=== PATIENT | male | born 1980 | race Caucasian/White ===

== ENCOUNTER 2017-03-25 12:38 | Observation (INO) | payer OTHER ==
[2017-03-25 13:01] LABS: BASOPHIL# 0.1 X 10^3uL (0.0-0.1); BASOPHILS 0.5 % (0.0-2.0); EOSINOPHILS 0.9 % (0.0-6.0); EOSINOPHILS# 0.1 X 10^3uL (0.0-0.4); HEMATOCRIT 47.4 % (42.0-54.0); HEMOGLOBIN 16.6 g/dL (14.0-18.0); LYMPHOCYTES 22.6 % (20.0-40.0); LYMPHOCYTES# 2.9 X 10^3uL (0.8-3.8); MEAN CELL VOLUME 92.6 fL (80.0-100.0); MEAN CORPUS. HGB CONCENTRATION 35.1 g/dL (32.0-36.0); MEAN CORPUSCULAR HEMOGLOBIN 32.5 pg (29.0-35.0); MEAN PLATELET VOLUME 8.6 fL (7.4-10.4); MONOCYTES# 0.8 X 10^3uL (0.2-1.0); NEUTROPHILS# 9.1 X 10^3uL (2.6-6.7); PLATELET COUNT 277 X 10^3uL (130-440); RED BLOOD COUNT 5.12 X 10^6uL (4.20-6.10); RED CELL DISTRIBUTION WIDTH 12.3 % (11.5-14.5)
[2017-03-25] MEDS ORDERED: ONDANSETRON HCL 4 MG/2 ML VIAL ONE ×2 (13:01→17:43)
[2017-03-25] MEDS ORDERED: HYDROmorphone HCL 1 MG/ML SYR ONE ×2 (13:01→14:56)
[2017-03-25 13:14] LABS: A/G RATIO 1.4; ALBUMIN 4.9 g/dL (3.5-5.0); ALKALINE PHOSPHATASE 76 U/L (38-126); ALT 34 U/L (21-72); AST 42 U/L (17-59); BILIRUBIN, TOTAL 0.8 mg/dL (0.2-1.3); BLOOD UREA NITROGEN 18 mg/dL (9-20); CALCIUM 9.8 mg/dL (8.4-10.2); CHLORIDE 101 mmol/L (98-107); CREATININE 1.1 mg/dL (0.7-1.3); EST GLOMERULAR FILTRATION RATE > 60 mL/min; GLUCOSE 132 mg/dL (70-100); POTASSIUM 3.3 mmol/L (3.5-5.1); SODIUM 144 mmol/L (137-145); TOTAL PROTEIN 8.4 g/dL (6.3-8.2)
--- NOTE | 2017-03-25 13:50 | CT REPORT ---
HISTORY: Fall from 20 feet. Trauma. COMPARISON: None. TECHNIQUE: This examination was performed using automated exposure control, adjustment of mA or kV according to patient size, and/or use of iterative reconstruction technique. Multiple contiguous axial images were obtained from the lung bases through the pubic symphysis following administration of intravenous con trast. 100cc Isovue 300 contrast. FINDINGS: The lung bases are clear except for minimal scarring in the right middle lobe. There is no pleural or pericardial effusion. The heart size. Abdomen/pelvis: The liver, gallbladder, and bile ducts appear normal. The spleen, pancreas, adrenal g lands, and kidneys appear unremarkable, except for small left renal parapelvic cysts. The abdominal a jamil is normal. The bowel and bladder appear unremarkable. No free fluid or free air is demonstrated. No fracture is demonstrated in the lumbar spine or pelvis. Imaged lower ribs are intact. IMPRESSION: Negative abdomen and pelvis CT, except for left renal parapelvic cysts. No acute traumatic findings. Final Electronic Signature: This report was electronically signed by Luis E Osuna MD on 03/25/2017 1:48 PM. oral /
--- NOTE | 2017-03-25 13:52 | CT REPORT ---
HISTORY: Fall from 20 feet. Trauma. COMPARISON: None. TECHNIQUE: This examination was performed using automated exposure control, adjustment of mA or kV according to patient size, and/or use of iterative reconstruction technique. Axial thin section images obtained f rom skull base through head of the clavicles. Sagittal and coronal reformat images obtained. FINDINGS: No acute fracture or traumatic subluxation is demonstrated. Degenerative disc disease is moderate at C5-6 and C6-7. Prevertebral soft tissues are normal. IMPRESSION: 1. Moderate degenerative disc disease at C5-6 and C6-7. 2. No acute fracture or traumatic subluxation. Final Electronic Signature: This report was electronically signed by Luis E Osuna MD on 03/25/2017 1:50 PM. oral /
--- NOTE | 2017-03-25 15:10 | RADIOLOGY REPORT ---
Two limited views of the right ankle demonstrate no displaced fracture, dislocation or other bony abnormality. The visualized joints appear unremarkable. IMPRESSION: No displaced injury is identified. If clinically indicated, further evaluation and/or follow-up may be of benefit. MTDD
--- NOTE | 2017-03-25 15:11 | RADIOLOGY REPORT ---
Three views of the left wrist demonstrate a comminuted intraarticular fracture of the distal radius. There is approximately 90 degrees of apex anterior angulation. The carpus and ulna appear grossly intact. No other abnormality is identified. IMPRESSION: Angulated comminuted intraarticular left distal radius fracture as described. MTDD
[2017-03-25] MEDS ORDERED: FENTANYL 100 MCG/2 ML VIAL ONE (15:29)
[2017-03-25] MEDS ORDERED: LIDOCAINE HCL 2% 20 ML VIAL ONE (15:29)
[2017-03-25] MEDS ORDERED: MIDAZOLAM HCL 2 MG/2 ML VIAL ONE (15:29)
[2017-03-25] MEDS ORDERED: SUCCINYLCHOLINE CHLORIDE 200 MG/10 ML VIAL ONE (15:30)
[2017-03-25] MEDS ORDERED: METOCLOPRAMIDE HCL 10 MG/2 ML VIAL ONE (15:30)
--- NOTE | 2017-03-25 16:40 | ER NURSING DOCUMENTATION ---
Nurse's Notes [facility] Name:Kamlesh Harris Age:36 yrs Sex:Male :1980 Arrival Date:03/25/2017 Time:12:38 BedD-1 Private MD: Diagnosis:Distal Radius Fracture Presentation: 03/25 12:44 Acuity: ANNITA 2 tg 12:50 Presenting complaint: Patient states: Pt fell from scaffolding, approx. 14 feet. No tg LOC, pain in left wrist (deformity), right ankle, forehead. Care prior to arrival: None. Mechanism of Injury: Fall 14 feet from scaffolding. 12:50 Method Of Arrival: Private Vehicle tg 16:04 Transition of care: patient was not received from another setting of care. tg Triage Assessment: 12:54 General: Appears uncomfortable, Behavior is cooperative. Pain: Complains of pain in tg forehead, left arm and right ankle. Derm: Skin is pink, warm & dry. Historical: - Allergies: Bee venom; - Home Meds: 1. None - PMHx: None; - PSHx: None; - Tetanus: unknown < 10 years. - Ebola Screening: : Patient negative for fever greater than or equal to 101.5 degrees Fahrenheit, and additional compatible Ebola Virus Disease symptoms. Patient denies exposure to infectious person. Patient denies travel to an Ebola-affected area in the 21 days before illness onset. No symptoms or risks identified at this time. . - Social history: Smoking status: Patient uses tobacco products, current every day smoker. - Immunization history: Flu Vaccine unknown. Screenin:53 Abuse screen: Denies threats or abuse. Denies injuries from another. Nutritional tg screening: No deficits noted. Tuberculosis screening: No symptoms or risk factors identified. 12:59 Infectious Disease Risk Unable to Obtain. tg Primary Survey: 12:52 Airway: patent. Breathing/Chest: Respiratory pattern: regular, Respiratory effort: tg spontaneous, unlabored. Circulation: Pulses: palpable right radial artery. Skin color: pink, Skin temperature: warm. Secondary Survey: 12:53 Gastrointestinal: Abdomen is flat. tg Assessment: 13:05 Reassessment: LAST PO INTAKE- pt ate lunch at noon today with a gatorade. tg 16:08 Reassessment: Pt has left the ED. tg Vital Signs: 12:45 BP 145 / 87; Pulse 77; Resp 20; Temp 97.8(TE); Pulse Ox 98% on R/A; Weight 72.57 kg tg (R); Height 6 ft. 2 in. (187.96 cm) (R); Pain 8/10; 12:52 BP 154 / 97 (auto/); lp 12:57 Pulse 79 MON; Resp 15; Pulse Ox 96% ; lp 13:00 BP 151 / 102 (auto/); lp 13:02 Pulse 69 MON; Resp 29; Pulse Ox 94% ; lp 13:42 BP 151 / 98 (auto/); tg 13:42 Pulse 73 MON; Resp 15; Pulse Ox 97% ; Pain 5/10; tg 14:31 BP 134 / 91 (auto/); tg 14:32 Pulse 63 MON; Resp 27; Pulse Ox 95% ; tg 15:57 Pulse 85 MON; Resp 16; Pulse Ox 96% ; tg 16:00 BP 138 / 90 (auto/); tg 16:00 Pain 3/10; tg 12:45 Body Mass Index 20.54 (72.57 kg, 187.96 cm) tg Trauma Score (Adult): 12:45 Eye Response: spontaneous(1); Verbal Response: oriented(1); Motor Response: obeys tg commands(2); Systolic BP: > 89 mm Hg(4); Respiratory Rate: 10 to 29 per min(4); [place] Score: 15; Trauma Score: 12 16:07 Eye Response: spontaneous(1); Verbal Response: oriented(1); Motor Response: obeys tg commands(2); Systolic BP: > 89 mm Hg(4); Respiratory Rate: 10 to 29 per min(4); [place] Score: 15; Trauma Score: 12 ED Course: 12:39 Patient arrived in ED. ds 12:44 Triage completed. tg 12:46 Aydin Das MD is Attending Physician. tl1 12:54 Valuables Remains with patient. tg 12:54 Inserted peripheral IV: 18 gauge in right antecubital area and blood collected. tg 12:56 Arm band placed on Bed in low position Call Light in Reach Gowned HOB Elevated Side tg rails up x1. 12:57 Avinash Ordonez RN is Primary Nurse. tg 12:59 Valuables Remains with patient. tg 13:[address] tt 13:[address] Patient moved back from [address]. tt 14:40 Assist Provider Assist provider with fracture care of left wrist Fracture is closed. tg Obvious deformity is noted. Circulation, motor and sensation Set up for procedure. Performed by Rush Casarez MD Reduction was not performed. Immobilized with OCL splint, Patient tolerated well. 16:38 Rush Casarez MD is Admitting Physician. tg Administered Medications: 13:01 Drug: Zofran 4 mg; Route: IVP; Rate: 1 mg/min; Infused Over: 2 mins; Site: right rs antecubital; 14:34 Follow up: Response: No adverse reaction; Nausea is decreased lp 13:15 Drug: Dilaudid 2 mg; Route: IVP; Rate: 0.25 mg/min; Infused Over: 13 mins; Site: right rs antecubital; 14:34 Follow up: Response: No adverse reaction; Pain is decreased lp 14:50 Drug: Dilaudid 1 mg; Route: IVP; Site: right antecubital; tg 16:03 Follow up: Response: No adverse reaction; Pain is decreased tg Intake: 16:07 PO: 0ml; IV: 0ml; Total: 0ml. tg Output: 16:07 Urine: 0ml; Total: 0ml. tg Outcome: 16:00 Admitted to OR accompanied by nurse, via stretcher, with oxygen. tg 16:00 Condition: improved 16:04 Instructed on need to admit tg 16:39 Decision to Admit by Provider. tg 16:39 Patient left the ED. tg Signatures: Avinash Ordonez RN RN tg Fabi Bell RN RN rs Pavlish, Lena, RN RN lp ot, Evelin, Reg Reg Marni Borrego tt Aydin Das MD MD tl1
[2017-03-25] MEDS ORDERED: FENTANYL 100 MCG/2 ML VIAL IV PRN (17:14)
[2017-03-25] MEDS ORDERED: MEPERIDINE HCL/PF 50 MG/ML SYR IV PRN (17:14)
[2017-03-25] MEDS ORDERED: ONDANSETRON HCL 4 MG/2 ML VIAL IV PRN ×2 (17:14→19:10)
[2017-03-25] MEDS ORDERED: HYDROmorphone HCL 1 MG/ML SYR IV PRN (17:14)
[2017-03-25] MEDS ORDERED: GLYCOPYRROLATE 0.2 MG/ML VIAL ONE (17:43)
[2017-03-25] MEDS ORDERED: NEOSTIGMINE METHYLSULFATE 10 MG/10 ML VIAL ONE (17:43)
[2017-03-25] MEDS ORDERED: LACTATED RINGERS 1,000 ML IV SCH (18:00)
[2017-03-25] MEDS ORDERED: DESFLURANE 240 ML BTL INHALATION ONE (18:15)
--- NOTE | 2017-03-25 19:08 | PROCEDURE NOTE: Orthopedics ---
Orthopedic Procedure note - Brief Operative Note Date of procedure: 03/25/17 Pre-Op Diagnosis: Comminuted fracture left distal radius Post-op diagnosis: same Procedure: ORIF Implants: Accumed distal radius plate Anesthesia Type: General Physician: JOCELYN SINCLAIR Estimated Blood Loss: 10 Total Tourniquet Time (mins): 101 Specimen/Pathology: none sent Sponge/instrument count: correct X-ray/Fluoroscopy: Yes Condition: stable Disposition: PACU
--- NOTE | 2017-03-25 19:15 | RADIOLOGY REPORT ---
Two limited views of the left wrist from the C-Arm in the operating room at 1800 hours are compared with films earlier on the same date. There has been interval open reduction and internal fixation of the distal radius fracture secured with a volar plate and multiple screws. No other change is identified. IMPRESSION: Interval open reduction and internal fixation of the left distal radius fracture. DIMPLE
[2017-03-25] MEDS: DEXTROSE 5% LACTATED RINGERS 1,000 ML IV SCH (20:48)
[2017-03-25] MEDS ORDERED: DEXTROSE 5% LACTATED RINGERS 1,000 ML IV ONE (20:58)
[2017-03-25] MEDS: CELECOXIB 100 MG CAPSULE PO SCH (22:55)
[2017-03-26] MEDS: ceFAZolin 1 GM in NORMAL SALINE MINI-BAG+ 100 ML IV SCH ×2 (01:57→09:13)
[2017-03-26] MEDS: DEXTROSE 5% LACTATED RINGERS 1,000 ML IV SCH (05:55)
[2017-03-26 06:44] VITALS: BP 130/86; PULSE 74; TEMP 98.3
--- NOTE | 2017-03-26 07:20 | OPERATIVE REPORT ---
DATE OF SURGERY: 03/25/17 SURGEON: Rush Casarez MD PREOPERATIVE DIAGNOSIS: Severe comminuted intraarticular fracture of the left distal radius. POSTOPERATIVE DIAGNOSIS: Severe comminuted intraarticular fracture of the left distal radius. PROCEDURE PERFORMED: Open reduction, internal fixation. IMPLANTS USED: Acumed volar locking distal radius plate. INDICATION FOR PROCEDURE: The patient is a 36-year-old male who fell 12 feet off of a platform today, injuring his left nondominant wrist and sustaining a severely angulated comminuted fracture of the distal radius. Because of the clearly unstable nature of the fracture, he was taken to the operating room for open reduction, internal fixation. DESCRIPTION OF PROCEDURE: After informed consent was obtained, the patient was taken to the operating room where he was placed in the supine position under general anesthesia. After adequate anesthesia was achieved, the left upper extremity was first cleaned, and then a reduction maneuver was performed. C-arm fluoroscopy was used to verify that we could achieve reasonable alignment of the fracture. Therefore the left hand and upper extremity were prepped and draped in the usual sterile fashion, the limb was elevated but not exsanguinated , and a tourniquet was inflated about the proximal arm to 250 mmHg. A longitudinal incision was then performed in the region of the flexor carpal radialis. The underlying soft tissue was gently but sharply dissected to reveal the fascia. The superficial forearm fascia was incised and then blunt dissection was carried out down to the deep forearm fascia. That fascia was incised as well, and then blunt dissection was carried out down to the pronator quadratus. The pronator quadratus was released from its tendinous attachment on the radial side and then was elevated subperiosteal to expose the distal radius. The fracture was exposed and was gently debrided using a curet. The fracture site and wound were then irrigated with copious amounts of sterile saline, and then a reduction maneuver was then performed. Provisional fixation was held using 2 K-wires driven across the radial styloid. C-arm fluoroscopy was used to verify proper alignment on both AP and lateral views. There was a great deal of dorsal comminution, and we do feel it was prudent to approach that dorsally to try to reduce those small fragments. Therefore, the distal radius plate was positioned on the volar aspect of the forearm and distal radius , and then it was secured proximally using a 3.5 mm cortical screw. Once proper position was verified, it was also provisionally secured using K-wires, and then it was secured distally using the 2.8 mm screws. We used an initial non- locking screw on the ulnar side, and then the remainder screws were locking screws. Once the distal portion of the radius was secured, C-arm fluoroscopy was used to verify proper alignment and length of the screws. The plate was then secured proximally using the remaining holes in the plate with 3.5 mm cortical screws. Once again, C-arm fluoroscopy was used to verify proper alignment and position. The wound was then irrigated with copious amounts of sterile saline, and the pronator quadratus was reapproximated and repaired using #0 Vicryl. The subcutaneous tissue was then closed using 2-0 Vicryl and the skin was closed using 4-0 nylon in a running fashion. The subcutaneous tissue and deep wound were injected with 0.25% Marcaine without epinephrine. A sterile guaze dressing was then applied and the patient was placed into a well-padded volar splint. He tolerated the procedure well and was taken to the recovery room in stable condition. ESTIMATED BLOOD LOSS: Minimal. FLUIDS: Lactated ringers 1400 mL. TOURNIQUET TIME: [address] [facility]
--- NOTE | 2017-03-26 07:38 | HISTORY & PHYSICAL ---
DATE OF ADMISSION: 03/25/17 ADMITTING PHYSICIAN: Rush Casarez MD ADMITTING DIAGNOSIS: Severely comminuted fracture of the left distal radius after a fall from a significant height. HISTORY OF PRESENT ILLNESS: The patient is a 36-year-old male who was at work today when he fell off the platform about 12 feet, sustaining an injury to his left distal radius with obvious deformity of the distal forearm. He is brought into the Emergency Room at which time he is noted to have a severely comminuted angulated fracture of the distal radius. There is some concern that he may have had an open fracture as there was a wound on the ulnar side of the volar side of the wrist, but later examination confirmed that this was not an open fracture. The patient also reported pain in his right ankle, and had a small laceration on his forehead. He denied other injuries associated with this fall. PAST MEDICAL HISTORY: Unremarkable. MEDICATIONS: None on a regular basis. ALLERGIES: No known drug allergies. SOCIAL HISTORY: Patient is a 1/7-rtwk-aqh-day smoker and drinks alcohol regularly. FAMILY HISTORY: Noncontributory. REVIEW OF SYSTEMS: Negative for chest pain or shortness of breath and he has not had any other illness. Review of systems is otherwise noncontributory. PHYSICAL EXAMINATION GENERAL: Well-appearing male in no apparent distress. Alert and oriented x3. HEENT: Atraumatic/normocephalic. He does have a small laceration on his forehead which was cleaned in the Emergency Department. NECK: Supple without adenopathy. Specifically he is nontender in the cervical region and denied any neck pain. CHEST: He is nontender about his chest. LUNGS: Clear. CARDIAC: Regular rate and rhythm without murmur. ABDOMEN: Soft, nontender. Normoactive bowel sounds. EXTREMITY: He is mildly tender to palpation at the posterior elbow. He is also mildly tender at the lateral aspect of the right ankle but there is no significant swelling of the ankle and no deformity. He has severe deformity of the left wrist as previously noted. He does have sensation intact to light touch with a 2+ pulse and brisk capillary refill distally. NEUROLOGIC: Nonfocal. IMAGING: Plain radiographs of the wrist reveal again a severely displaced fracture of the distal radius with intraarticular extension. It is essentially 100% displaced as well. Radiographs of the ankle did not reveal any fracture and was within normal limits. ASSESSMENT: Severely comminuted fracture of the left distal radius with minor multi-trauma in other areas. PLAN: He will be admitted to observation and taken to the operating room for open reduction, internal fixation of his left distal radius. We have discussed the operation, risks and indications. The risks of the procedure include but are not limited to infection, blood loss or nerve injury, loss of motion or persistent pain and stiffness in the wrist or failure of the fixation. The patient has acknowledged the risks and desires to go ahead and proceed as planned. DIMPLE
[2017-03-26] MEDS: CELECOXIB 100 MG CAPSULE PO SCH (09:13)
--- NOTE | 2017-03-26 09:25 | PROGRESS NOTE: Orthopedics ---
Orthopedic PN Subjective - Subjective Principal Diagnosis: Post op ORIF left distal radius Post-op Day: 1 Interval history: Pt feels fairly well. Has some nausea secondary to pain meds. Ortho PN Objective Exam - Latest Vital Signs and I&O Latest Vital Signs/I&O: Vital Signs Temp 36.8 C 03/26/17 06:43 Pulse 74 03/26/17 06:43 Resp 23 03/26/17 06:43 BP 130/86 03/26/17 06:43 Pulse Ox 94 03/26/17 06:43 Intake & Output 03/25/17 03/26/17 03/26/17 17:59 05:59 17:59 Intake Total 1874 Output Total 1900 Balance -26 Intake: IV 954 Right Antecubital 954 Oral 920 Output: Urine 1900 Other: Urine Appearance Clear Clear Urine Color Straw Yellow Voiding Method Urinal Urinal - Post-Operative Exam Post-op Day: 1 Dressing Status: reinforced Drainage Amount: moderate Drainage Description: sanguineous Active Motor: intact Sensation: intact - Lab Labs: Laboratory Last Values WBC 13.0 X 10^3uL (3.9-10.7) H 03/25/17 12:45 RBC 5.12 X 10^6uL (4.20-6.10) 03/25/17 12:45 Hgb 16.6 g/dL (14.0-18.0) 03/25/17 12:45 Hct 47.4 % (42.0-54.0) 03/25/17 12:45 MCV 92.6 fL (80.0-100.0) 03/25/17 12:45 MCH 32.5 pg (29.0-35.0) 03/25/17 12:45 MCHC 35.1 g/dL (32.0-36.0) 03/25/17 12:45 RDW 12.3 % (11.5-14.5) 03/25/17 12:45 Plt Count 277 X 10^3uL (130-440) 03/25/17 12:45 MPV 8.6 fL (7.4-10.4) 03/25/17 12:45 Neutrophils % 70.0 % (54.0-75.0) 03/25/17 12:45 Lymphocytes % 22.6 % (20.0-40.0) 03/25/17 12:45 Eosinophils % 0.9 % (0.0-6.0) 03/25/17 12:45 Basophils % 0.5 % (0.0-2.0) 03/25/17 12:45 Neutrophils # 9.1 X 10^3uL (2.6-6.7) H 03/25/17 12:45 Lymphocytes # 2.9 X 10^3uL (0.8-3.8) 03/25/17 12:45 Monocytes 6.0 % (2.0-10.0) 03/25/17 12:45 Monocytes # 0.8 X 10^3uL (0.2-1.0) 03/25/17 12:45 Eosinophils # 0.1 X 10^3uL (0.0-0.4) 03/25/17 12:45 Basophils # 0.1 X 10^3uL (0.0-0.1) 03/25/17 12:45 Sodium 144 mmol/L (137-145) 03/25/17 12:45 Potassium 3.3 mmol/L (3.5-5.1) L 03/25/17 12:45 Chloride 101 mmol/L (98-107) 03/25/17 12:45 Carbon Dioxide 25 mmol/L (22-30) 03/25/17 12:45 BUN 18 mg/dL (9-20) 03/25/17 12:45 Creatinine 1.1 mg/dL (0.7-1.3) 03/25/17 12:45 GFR Calculation > 60 mL/min 03/25/17 12:45 Glucose 132 mg/dL (70-100) H 03/25/17 12:45 Calcium 9.8 mg/dL (8.4-10.2) 03/25/17 12:45 Total Bilirubin 0.8 mg/dL (0.2-1.3) 03/25/17 12:45 AST 42 U/L (17-59) 03/25/17 12:45 ALT 34 U/L (21-72) 03/25/17 12:45 Alkaline Phosphatase 76 U/L (38-126) 03/25/17 12:45 Total Protein 8.4 g/dL (6.3-8.2) H 03/25/17 12:45 Albumin 4.9 g/dL (3.5-5.0) 03/25/17 12:45 Albumin/Globulin Ratio 1.4 03/25/17 12:45 Assessment and Plan-Ortho - Date of Encounter Date of Encounter: 03/26/17 (1) Closed fracture of left distal radius Status: Acute Assessment and plan: Doing fairly well. Plan: Discharge to home Current Visit: Yes Quality Questions - VTE Prophylaxis Assessment VTE Present on Admission?: No Patient at risk for venous thromboembolism?: No (1) Closed fracture of left distal radius Qualifiers: Fracture morphology: other intra-articular
[2017-03-26 10:56] VITALS: RESP 16; O2SAT 96
--- NOTE | 2017-03-27 16:40 | ER PHYSICIAN DOCUMENTATION ---
Physician Documentation Name:Kamlesh Hraris Age:36 yrs Sex:Male :1980 Arrival Date:03/25/2017 Time:12:38 BedD-1 Private MD: Aydin Holman Disposition: 03/25 18:00 Chart complete. tl1 Disposition: 03/25/17 16:39 Admit ordered for Rush Casarez. Preliminary diagnosis is Distal Radius Fracture. - Bed requested for Operating Room. - Condition is Good. - Problem is new. - Symptoms have improved. 23 HR OBS Yes HPI: 12:40 This 36 yrs old Male presents to ER via Private Vehicle with complaints of tl1 Fall Injury. 12:40 Details of fall: The patient fell from a height, off scaffolding, approximately 14 tl1 feet, in a freefall-type manner, he landed on hard reji ground, head first.. Onset: The symptom(s)/episode began/occurred suddenly, just prior to arrival. Associated injuries: The patient sustained injury to the head, abrasion, left wrist, decreased range of motion, deformity, obvious fracture, swelling, right ankle, contusion. Severity of symptoms: At their worst the symptoms were moderate. No LOC. Denies h/a, neck pain, N/W/T, CP,AP, Back pain or other extremity pain. Historical: - Allergies: Bee venom; - Home Meds: 1. None - PMHx: None; - PSHx: None; - Tetanus: unknown < 10 years. - Ebola Screening: : Patient negative for fever greater than or equal to 101.5 degrees Fahrenheit, and additional compatible Ebola Virus Disease symptoms. Patient denies exposure to infectious person. Patient denies travel to an Ebola-affected area in the 21 days before illness onset. No symptoms or risks identified at this time. . - Social history: Smoking status: Patient uses tobacco products, current every day smoker. - Immunization history: Flu Vaccine unknown. ROS: 13:20 MS/extremity: Positive for injury or acute deformity, of the left wrist. tl1 13:20 Skin: Positive for abrasion(s), of the forehead and right arm. 13:20 Neuro: Negative for altered mental status, headache, loss of consciousness, numbness, speech changes, syncope, tingling, tinnitus, weakness. 13:20 All other systems are negative. Exam: 13:20 Constitutional: The patient appears alert, awake, well developed, well hydrated, well tl1 groomed, well nourished, diaphoretic, in obvious distress, in obvious pain, uncomfortable. 13:20 Head/face: Noted is abrasion(s), that are mild, of the forehead, nasal drainage, Sinus tenderness. 13:20 Eyes: Periorbital structures: appear normal, Pupils: equal, round, and reactive to light and accomodation, right pupil is approximately 2.5 mm(s), left pupil is approximately 2.5 mm(s), Extraocular movements: intact throughout, Conjunctiva: normal, Anterior chamber: normal, Lids and lashes: appear normal. 13:20 Neck: External neck: is normal, C-spine: appears grossly normal, no acute changes, vertebral tenderness, is not appreciated, Trachea: is midline with no obvious abnormalities, ROM/movement: is normal. 13:20 Chest/axilla: Inspection: normal, Palpation: is normal, no acute changes, crepitus, is not appreciated, tenderness, is not appreciated. 13:20 Cardiovascular: Rate: normal, Rhythm: regular, Heart sounds: normal, JVD: is not appreciated. 13:20 Respiratory: the patient does not display signs of respiratory distress, Respirations: normal. 13:20 Abdomen/GI: Inspection: abdomen appears normal, Palpation: abdomen is soft and non-tender, Liver: no appreciated palpable abnormalities, tenderness, is not appreciated. 13:20 Musculoskeletal/extremity: Extremities: grossly normal except: noted in the left wrist: deformity, pain, swelling, tenderness, noted in the right ankle: tenderness, noted in the right elbow: abrasion, ROM: limited active range of motion, in the left wrist, limited passive range of motion, Circulation is intact in all extremities. Sensation intact. 13:20 Skin: Exam negative for acute changes. 13:20 Neuro: Orientation: is normal, Mentation: is normal, Memory: is normal, Cranial nerves: grossly normal, Motor: is normal, Sensation: is normal, Gait: not tested. 13:20 Psych: Exam negative for acute changes. Vital Signs: 12:45 BP 145 / 87; Pulse 77; Resp 20; Temp 97.8(TE); Pulse Ox 98% on R/A; Weight 72.57 kg tg (R); Height 6 ft. 2 in. (187.96 cm) (R); Pain 8/10; 12:52 BP 154 / 97 (auto/); lp 12:57 Pulse 79 MON; Resp 15; Pulse Ox 96% ; lp 13:00 BP 151 / 102 (auto/); lp 13:02 Pulse 69 MON; Resp 29; Pulse Ox 94% ; lp 13:42 BP 151 / 98 (auto/); tg 13:42 Pulse 73 MON; Resp 15; Pulse Ox 97% ; Pain 5/10; tg 14:31 BP 134 / 91 (auto/); tg 14:32 Pulse 63 MON; Resp 27; Pulse Ox 95% ; tg 15:57 Pulse 85 MON; Resp 16; Pulse Ox 96% ; tg 16:00 BP 138 / 90 (auto/); tg 16:00 Pain 3/10; tg 12:45 Body Mass Index 20.54 (72.57 kg, 187.96 cm) Trauma Score (Adult): 12:45 Eye Response: spontaneous(1); Verbal Response: oriented(1); Motor Response: obeys tg commands(2); Systolic BP: > 89 mm Hg(4); Respiratory Rate: 10 to 29 per min(4); Handy Score: 15; Trauma Score: 12 16:07 Eye Response: spontaneous(1); Verbal Response: oriented(1); Motor Response: obeys tg commands(2); Systolic BP: > 89 mm Hg(4); Respiratory Rate: 10 to 29 per min(4); [place] Score: 15; Trauma Score: 12 MDM: 12:46 Patient medically screened. tl1 15:00 Differential diagnosis: abrasion, closed head injury, fracture, multiple trauma, tl1 sprain. Data reviewed: vital signs, nurses notes, lab test result(s), CBC, electrolytes, hepatic panel, urinalysis, radiologic studies, CT scan, plain films, and as a result, I will admit patient. Test interpretation: by ED physician or midlevel provider: plain radiologic studies. Counseling: I had a detailed discussion with the patient and/or guardian regarding: the historical points, exam findings, and any diagnostic results supporting the discharge/admit diagnosis, lab results, radiology results, the need for further work-up and treatment in the hospital. Medication response: The patient's symptoms have improved, Dilaudid. Response to treatment: the patient's symptoms have mildly improved after treatment. Physician consultation: Rush Casarez MD was called at 16:00, was contacted at 16:10, regarding patient's condition, need to come to ED to see patient, and will see patient in ED, shortly. 03/25 13:03 Order name: CBC AUTO DIF, MDIF/RMOR IF IND; Complete Time: 14:06 EDMS 03/25 14:02 Interpretation: WHITE BLOOD COUNT 13.0; HEMOGLOBIN 16.6; HEMATOCRIT 47.4; PLATELET tl1 COUNT 277. 03/25 13:15 Order name: COMPREHENSIVE METABOLIC PANEL; Complete Time: 14:06 EDMS 03/25 14:03 Interpretation: SODIUM 144; POTASSIUM 3.3; CHLORIDE 101; CARBON DIOXIDE 25; GLUCOSE tl1 132; BLOOD UREA NITROGEN 18; CREATININE 1.1; EST GLOMERULAR FILTRATION RATE > 60. 03/25 13:52 Order name: CAT SCAN; ABD/PEL W [id number] EDMS 03/25 15:32 Order name: WRIST; [place] [id number] EDMS 03/25 15:46 Order name: CAT SCAN; CERVICAL [id number] EDMS 03/25 15:46 Order name: ANKLE; [address] [place] [id number] EDMS 03/26 07:14 Order name: WRIST; [address] [place] [id number] EDMS Dispensed Medications: 13:01 Drug: Zofran 4 mg; Route: IVP; Rate: 1 mg/min; Infused Over: 2 mins; Site: right rs antecubital; 14:34 Follow up: Response: No adverse reaction; Nausea is decreased lp 13:15 Drug: Dilaudid 2 mg; Route: IVP; Rate: 0.25 mg/min; Infused Over: 13 mins; Site: right rs antecubital; 14:34 Follow up: Response: No adverse reaction; Pain is decreased lp 14:50 Drug: Dilaudid 1 mg; Route: IVP; Site: right antecubital; tg 16:03 Follow up: Response: No adverse reaction; Pain is decreased tg Signatures: Avinash Ordonez RN RN tg Fabi Bell RN RN rs Aydin Das MD MD tl1 Concepcion Brumfield RN lp
== END 2017-03-26 09:32 | disposition home or self-care (01) ==
LOC: ER 12:38 → SDS 16:10 → IN 20:29
PROVIDERS: ADMIT Orthopaedic Surgery; ATTEND Orthopaedic Surgery
DX: S52.572A Other intraarticular fracture of lower end of left radius, initial encounter for closed fracture (principal); W12.XXXA Fall on and from scaffolding, initial encounter
CPT/HCPCS: 72125; 74177; 76000; 80053; 85025; 96374; 96375; 96376; 99285; C1713; G0378; J0690; J1170; J2250; J2405; J2550; J2710; J2765; J3010